=== PATIENT | female | born 2000 | race Caucasian/White ===

== ENCOUNTER 2022-12-05 10:02 | Emergency (ER) | payer MEDICAID | END 2022-12-05 11:16 | disposition home or self-care (01) | LOC: CSHERS 10:02 | DX: H92.01 Otalgia, right ear (principal) | CPT/HCPCS: 99282 ==

== ENCOUNTER 2025-04-11 19:10 | Emergency (ER) | payer BC, OTHER ==
[2025-04-11] MEDS ORDERED: Lidocaine 1% w/Epinephrine 1:200K 30 ML VIAL ONE (22:30)
[2025-04-11] MEDS ORDERED: Amoxicillin/Potassium Clav 875 MG TAB ONE (22:40)
== END 2025-04-11 22:55 | disposition home or self-care (01) ==
LOC: CSHERS 19:10
DX: O99.713 Diseases of the skin and subcutaneous tissue complicating pregnancy, third trimester (principal); L02.211 Cutaneous abscess of abdominal wall; Z3A.30 30 weeks gestation of pregnancy
CPT/HCPCS: 10060

== ENCOUNTER 2025-05-27 20:25 | Day surgery (SDC) | payer BC, OTHER ==
[2025-05-27] MEDS ORDERED: hydrALAZINE 20 MG/ML VIAL SLOW IVP PRN (21:23)
[2025-05-27 21:26] VITALS: BMI 44.2
[2025-05-27 21:29] LABS: Glucose, Urine (Dipstick) Normal (Negative); Leukocyte 100 (Negative); Protein, Urine (Dipstick) 100 mg/dl (Neg-Trace); Specific Gravity, Urine 1.025 (1.005-1.030)
[2025-05-27 21:47] LABS: Bacteria/HPF None Seen HPF (None Seen); CAUTI Indications for Culture Pregnancy; RBC/HPF 0-3 HPF (0-3)
[2025-05-27 21:48] LABS: Urine Culture Reflex Yes Yes
== END 2025-05-28 00:32 | disposition home or self-care (01) ==
LOC: CSHLD/OP 20:25
PROVIDERS: ATTEND Family Medicine
DX: O47.1 False labor at or after 37 completed weeks of gestation (principal); O99.213 Obesity complicating pregnancy, third trimester; E66.813 Obesity, class 3; O99.013 Anemia complicating pregnancy, third trimester; O24.414 Gestational diabetes mellitus in pregnancy, insulin controlled; O99.613 Diseases of the digestive system complicating pregnancy, third trimester; K21.9 Gastro-esophageal reflux disease without esophagitis; O13.3 Gestational [pregnancy-induced] hypertension without significant proteinuria, third trimester; O36.63X0 Maternal care for excessive fetal growth, third trimester, not applicable or unspecified; O23.593 Infection of other part of genital tract in pregnancy, third trimester; B96.89 Other specified bacterial agents as the cause of diseases classified elsewhere; O98.813 Other maternal infectious and parasitic diseases complicating pregnancy, third trimester; B37.9 Candidiasis, unspecified; Z3A.37 37 weeks gestation of pregnancy; Z67.10 Type A blood, Rh positive; Z79.82 Long term (current) use of aspirin; Z79.899 Other long term (current) drug therapy
CPT/HCPCS: 81001; 87086; 87480; 87510; 87660; 99285